=== PATIENT | female | born 1950 | race Two or more races ===

== ENCOUNTER 2018-08-10 10:04 | Outpatient (CLI) | payer OTHER | END 2018-08-10 10:12 | disposition home or self-care (01) | LOC: SONOGRAMA 10:04 | DX: D21.22 Benign neoplasm of connective and other soft tissue of left lower limb, including hip (principal) ==

== ENCOUNTER 2018-09-04 14:36 | Outpatient (CLI) | payer OTHER | END 2018-09-04 16:50 | disposition home or self-care (01) | LOC: MRI 14:36 | DX: D21.22 Benign neoplasm of connective and other soft tissue of left lower limb, including hip (principal) | CPT/HCPCS: 73720; A9579; 73718 ==

== ENCOUNTER 2018-09-23 04:36 | Emergency (ER) | payer OTHER ==
[~2018-09-23] VITALS: Ht 165.1 cm; Wt 65.3 kg
[2018-09-23] MEDS ORDERED: SYNTHROID50 MCG (04:59)
== END 2018-09-23 11:01 ==
LOC: ER 04:36
DX: N20.0 Calculus of kidney (principal)

== ENCOUNTER → 2018-11-20 | Outpatient (CLI) | payer OTHER ==
[~2018-11-20] MED LIST: SYNTHROID50 MCG
== END | disposition home or self-care (01) ==
LOC: NUCLEAR 11:22
DX: I82.422 Acute embolism and thrombosis of left iliac vein (principal)

== ENCOUNTER 2018-12-14 06:36 | Emergency (ER) | payer OTHER ==
[~2018-12-14] VITALS: Ht 167.6 cm; Wt 66.7 kg
[2018-12-14] MEDS ORDERED: VENTOLIN HFA18 GM (06:53)
[2018-12-14] MEDS ORDERED: AVAPRO300 MG (06:53)
== END 2018-12-14 17:03 | disposition home or self-care (01) ==
LOC: ER 06:36
DX: I82.492 Acute embolism and thrombosis of other specified deep vein of left lower extremity (principal); J45.998 Other asthma; I80.12 Phlebitis and thrombophlebitis of left femoral vein; J11.1 Influenza due to unidentified influenza virus with other respiratory manifestations

== ENCOUNTER 2019-01-04 12:14 | Outpatient (CLI) | payer OTHER ==
[~2019-01-04 12:14] MED LIST changes: +AVAPRO300 MG; +VENTOLIN HFA18 GM
== END 2019-01-04 12:27 | disposition home or self-care (01) ==
LOC: MRI 12:14
DX: R22.42 Localized swelling, mass and lump, left lower limb (principal)
CPT/HCPCS: 73718

== ENCOUNTER 2019-02-18 11:51 | Outpatient (CLI) | payer OTHER | END 2019-02-18 11:53 | disposition home or self-care (01) | LOC: RAD 11:51 | DX: M77.32 Calcaneal spur, left foot (principal); M77.42 Metatarsalgia, left foot ==

== ENCOUNTER 2019-07-15 05:30 | Day surgery (SDC) | payer OTHER ==
[~2019-07-15 05:30] MED LIST changes: +APRESOLINE 10MG10 MG PO
== END 2019-07-15 12:10 | disposition home or self-care (01) ==
LOC: CIR.AMB 05:30
DX: D17.24 Benign lipomatous neoplasm of skin and subcutaneous tissue of left leg (principal)

== ENCOUNTER 2019-07-29 09:52 | Emergency (ER) | payer OTHER ==
[~2019-07-29] VITALS: Ht 167.6 cm; Wt 65.8 kg
[2019-08-15] MEDS ORDERED: CATAPRES0.1 MG (18:44)
[2019-08-15] MEDS ORDERED: LEVOTHYROXINE25 MCG (18:44)
== END 2019-07-29 14:15 | disposition home or self-care (01) ==
LOC: ER 09:52
DX: J22 Unspecified acute lower respiratory infection (principal)

== ENCOUNTER → 2019-08-15 | Emergency (ER) | payer OTHER ==
[~2019-08-15] VITALS: Ht 167.6 cm; Wt 65.8 kg
[~2019-08-15] MED LIST changes: +CATAPRES0.1 MG; +LEVOTHYROXINE25 MCG
== END | disposition home or self-care (01) ==
LOC: ER 18:23
DX: S00.83XA Contusion of other part of head, initial encounter (principal); S19.89XA Other specified injuries of other specified part of neck, initial encounter; M54.2 Cervicalgia; Y04.2XXA Assault by strike against or bumped into by another person, initial encounter; Y93.89 Activity, other specified; Y92.488 Other paved roadways as the place of occurrence of the external cause; Y99.8 Other external cause status

== ENCOUNTER 2019-08-27 08:55 | Outpatient (CLI) | payer OTHER | END 2019-08-27 11:02 | disposition home or self-care (01) | LOC: MAMO-SONO 08:55 | DX: Z12.31 Encounter for screening mammogram for malignant neoplasm of breast (principal); Z87.898 Personal history of other specified conditions; N60.11 Diffuse cystic mastopathy of right breast; N60.12 Diffuse cystic mastopathy of left breast ==

== ENCOUNTER 2019-08-28 08:37 | Outpatient (CLI) | payer OTHER | END 2019-08-28 08:57 | disposition home or self-care (01) | LOC: SONOGRAMA 08:37 → MAMO-SONO 08:45 → SONOGRAMA 08:57 | DX: R93.2 Abnormal findings on diagnostic imaging of liver and biliary tract (principal) ==

== ENCOUNTER 2019-09-07 08:11 | Emergency (ER) | payer OTHER ==
[~2019-09-07] VITALS: Ht 167.6 cm; Wt 65.3 kg
== END 2019-09-07 10:09 | disposition home or self-care (01) ==
LOC: ER 08:11
DX: H72.92 Unspecified perforation of tympanic membrane, left ear (principal); J45.998 Other asthma

== ENCOUNTER 2019-11-18 07:55 | Outpatient (CLI) | payer OTHER | END 2019-11-18 07:58 | disposition home or self-care (01) | LOC: RAD 07:55 | DX: M54.5 Low back pain (principal); S80.219A Abrasion, unspecified knee, initial encounter; J40 Bronchitis, not specified as acute or chronic; I80.00 Phlebitis and thrombophlebitis of superficial vessels of unspecified lower extremity; I80.209 Phlebitis and thrombophlebitis of unspecified deep vessels of unspecified lower extremity; I10 Essential (primary) hypertension; E03.8 Other specified hypothyroidism; D21.22 Benign neoplasm of connective and other soft tissue of left lower limb, including hip; M77.11 Lateral epicondylitis, right elbow; M25.521 Pain in right elbow ==

== ENCOUNTER 2020-05-10 07:51 | Outpatient (CLI) | payer OTHER | END 2020-05-10 08:06 | disposition home or self-care (01) | LOC: SONOGRAMA 07:51 | PROVIDERS: ATTEND Internal Medicine | DX: N60.11 Diffuse cystic mastopathy of right breast (principal); D24.1 Benign neoplasm of right breast; D24.2 Benign neoplasm of left breast; M54.5 Low back pain; S80.219A Abrasion, unspecified knee, initial encounter; J40 Bronchitis, not specified as acute or chronic; I80.00 Phlebitis and thrombophlebitis of superficial vessels of unspecified lower extremity; I80.209 Phlebitis and thrombophlebitis of unspecified deep vessels of unspecified lower extremity; I10 Essential (primary) hypertension; E03.8 Other specified hypothyroidism; M77.11 Lateral epicondylitis, right elbow; M25.521 Pain in right elbow; Z12.31 Encounter for screening mammogram for malignant neoplasm of breast; Z13.820 Encounter for screening for osteoporosis ==

== ENCOUNTER 2021-01-02 08:20 | Outpatient (CLI) | payer OTHER | END 2021-01-02 08:28 | disposition home or self-care (01) | LOC: SONOGRAMA 08:20 → MAMO-SONO 08:45 | PROVIDERS: ATTEND Internal Medicine Gastroenterology | DX: K76.0 Fatty (change of) liver, not elsewhere classified (principal); R93.2 Abnormal findings on diagnostic imaging of liver and biliary tract; D41.4 Neoplasm of uncertain behavior of bladder ==

== ENCOUNTER 2021-01-16 08:36 | Outpatient (CLI) | payer OTHER | END 2021-01-16 08:39 | disposition home or self-care (01) | LOC: RAD 08:36 | PROVIDERS: ATTEND Specialist | DX: M25.561 Pain in right knee (principal) ==

== ENCOUNTER 2021-02-20 10:04 | Outpatient (CLI) | payer OTHER | END 2021-02-20 10:24 | disposition home or self-care (01) | LOC: MAMO-SONO 10:04 | PROVIDERS: ATTEND Obstetrics & Gynecology | DX: Z13.31 Encounter for screening for depression (principal); Z87.898 Personal history of other specified conditions; N60.11 Diffuse cystic mastopathy of right breast; N60.12 Diffuse cystic mastopathy of left breast; Z12.2 Encounter for screening for malignant neoplasm of respiratory organs ==

== ENCOUNTER 2021-05-21 07:51 | Emergency (ER) | payer OTHER ==
[~2021-05-21] VITALS: Ht 167.6 cm; Wt 63.0 kg
[2021-05-21] MEDS ORDERED: ATACAND32 MG (08:06)
== END 2021-05-21 10:18 | disposition home or self-care (01) ==
LOC: ER 07:51
DX: G44.89 Other headache syndrome (principal); F43.8 Other reactions to severe stress; F41.1 Generalized anxiety disorder; Z03.818 Encounter for observation for suspected exposure to other biological agents ruled out

== ENCOUNTER 2021-11-29 07:29 | Outpatient (CLI) | payer OTHER ==
[~2021-11-29 07:29] MED LIST changes: +ATACAND32 MG
== END 2021-11-29 07:32 | disposition home or self-care (01) ==
LOC: SONOGRAMA 07:29
PROVIDERS: ATTEND Internal Medicine Gastroenterology
DX: N20.0 Calculus of kidney (principal); K82.8 Other specified diseases of gallbladder

== ENCOUNTER 2022-04-05 08:39 | Outpatient (CLI) | payer OTHER | END 2022-04-05 08:49 | disposition home or self-care (01) | LOC: MRI 08:39 | PROVIDERS: ATTEND Physical Medicine & Rehabilitation | DX: M25.561 Pain in right knee (principal); M25.461 Effusion, right knee | CPT/HCPCS: 73721 ==

== ENCOUNTER 2022-04-18 08:59 | Outpatient (CLI) | payer OTHER | END 2022-04-18 09:01 | disposition home or self-care (01) | LOC: MAMO-SONO 08:59 | PROVIDERS: ATTEND Internal Medicine | DX: Z12.31 Encounter for screening mammogram for malignant neoplasm of breast (principal); N60.11 Diffuse cystic mastopathy of right breast; N60.12 Diffuse cystic mastopathy of left breast ==

== ENCOUNTER 2022-05-29 09:10 | Outpatient (CLI) | payer OTHER | END 2022-05-29 09:14 | disposition home or self-care (01) | LOC: MRI 09:10 | PROVIDERS: ATTEND Physical Medicine & Rehabilitation | DX: M54.2 Cervicalgia (principal); M54.12 Radiculopathy, cervical region | CPT/HCPCS: 72141 ==

== ENCOUNTER 2022-11-17 05:07 | Emergency (ER) | payer OTHER ==
[~2022-11-17] VITALS: Ht 167.6 cm; Wt 62.6 kg
== END 2022-11-17 09:52 | disposition home or self-care (01) ==
LOC: ER 05:07
DX: J45.901 Unspecified asthma with (acute) exacerbation (principal); J06.9 Acute upper respiratory infection, unspecified; I10 Essential (primary) hypertension

== ENCOUNTER 2023-02-25 13:14 | Outpatient (CLI) | payer OTHER | END 2023-02-25 14:37 | disposition home or self-care (01) | LOC: NUCLEAR 13:14 | PROVIDERS: ATTEND Internal Medicine | DX: Z13.820 Encounter for screening for osteoporosis (principal); Z12.31 Encounter for screening mammogram for malignant neoplasm of breast; M54.50 Low back pain, unspecified; J40 Bronchitis, not specified as acute or chronic; I10 Essential (primary) hypertension; E03.9 Hypothyroidism, unspecified; M25.521 Pain in right elbow; M48.8X2 Other specified spondylopathies, cervical region ==

== ENCOUNTER 2023-04-26 10:17 | Emergency (ER) | payer OTHER ==
[~2023-04-26] VITALS: Ht 170.2 cm; Wt 63.5 kg
[2023-04-26] MEDS ORDERED: TOPROL XL25 M1 PO (10:37)
[2023-04-26] MEDS ORDERED: HYDRALAZINE HCL25 MG PO (10:37)
== END 2023-04-26 12:42 | disposition home or self-care (01) ==
LOC: ER 10:17
DX: S83.8X1A Sprain of other specified parts of right knee, initial encounter (principal); X58.XXXA Exposure to other specified factors, initial encounter; Y93.89 Activity, other specified; Y92.89 Other specified places as the place of occurrence of the external cause; Y99.8 Other external cause status; I10 Essential (primary) hypertension

== ENCOUNTER 2023-05-07 08:26 | Outpatient (CLI) | payer OTHER ==
[~2023-05-07 08:26] MED LIST changes: +HYDRALAZINE HCL25 MG PO; +TOPROL XL25 M1 PO
== END 2023-05-07 08:40 | disposition home or self-care (01) ==
LOC: MAMO-SONO 08:26
PROVIDERS: ATTEND Internal Medicine
DX: Z12.31 Encounter for screening mammogram for malignant neoplasm of breast (principal); N60.11 Diffuse cystic mastopathy of right breast; N60.12 Diffuse cystic mastopathy of left breast

== ENCOUNTER 2023-05-09 08:24 | Outpatient (CLI) | payer OTHER | END 2023-05-09 08:26 | disposition home or self-care (01) | LOC: SONOGRAMA 08:24 | PROVIDERS: ATTEND Physical Medicine & Rehabilitation | DX: K80.20 Calculus of gallbladder without cholecystitis without obstruction (principal) ==

== ENCOUNTER 2023-05-30 08:47 | Outpatient (CLI) | payer OTHER | END 2023-05-30 08:55 | disposition home or self-care (01) | LOC: NUCLEAR 08:47 | PROVIDERS: ATTEND Physical Medicine & Rehabilitation | DX: I87.2 Venous insufficiency (chronic) (peripheral) (principal) ==

== ENCOUNTER 2023-06-10 08:32 | Outpatient (CLI) | payer OTHER | END 2023-06-10 08:36 | disposition home or self-care (01) | LOC: SONOGRAMA 08:32 | PROVIDERS: ATTEND Obstetrics & Gynecology | DX: E04.1 Nontoxic single thyroid nodule (principal) ==

== ENCOUNTER 2023-11-24 07:24 | Emergency (ER) | payer OTHER ==
[~2023-11-24] VITALS: Ht 167.6 cm; Wt 62.6 kg
[2023-11-24] MEDS ORDERED: ATACAND32 MG PO (07:55)
[2023-11-24] MEDS ORDERED: HYDRALAZINE HCL50 MG PO (07:55)
[2023-11-24 09:33] LABS: HEMATOCRIT 43.5 % (36.0-45.00); HEMOGLOBIN 14.7 g/dL (12.0-15.00); MEAN CELL VOLUME 83.3 fL (80.00-100.00); MEAN CORPUSCULAR HEMOGLOBIN 28.3 pg (27.00-32.0); MEAN CORPUSCULAR HGB CONC 33.9 g/dl (32.0-36.0); PLATELET COUNT 205 K/uL (150-450); RED BLOOD COUNT 5.22 M/uL (4.00-6.00); RED CELL DISTRIBUTION WIDTH 13.3 % (11.5-14.5)
[2023-11-24 10:06] LABS: CALCIUM 10.4 mg/dL (8.5-10.1); CREATININE SERUM 0.55 mg/dL (0.55-1.02); GFR 108.96; POTASSIUM 3.86 mEq/L (3.5-5.1)
== END 2023-11-24 11:17 | disposition home or self-care (01) ==
LOC: ER 07:24
PROVIDERS: General Practice
DX: J06.9 Acute upper respiratory infection, unspecified (principal); K59.00 Constipation, unspecified
CPT/HCPCS: 96365; 99283; J3490

== ENCOUNTER 2023-12-01 08:55 | Outpatient (CLI) | payer OTHER ==
[~2023-12-01 08:55] MED LIST changes: +ATACAND32 MG PO; +HYDRALAZINE HCL50 MG PO
== END 2023-12-01 08:58 | disposition home or self-care (01) ==
LOC: RAD 08:55
PROVIDERS: ATTEND Physical Medicine & Rehabilitation
DX: M17.11 Unilateral primary osteoarthritis, right knee (principal); M17.12 Unilateral primary osteoarthritis, left knee

== ENCOUNTER 2023-12-10 11:33 | Outpatient (CLI) | payer OTHER | END 2023-12-10 11:38 | disposition home or self-care (01) | LOC: RAD 11:33 | PROVIDERS: ATTEND Physical Medicine & Rehabilitation | DX: R22.41 Localized swelling, mass and lump, right lower limb (principal) ==

== ENCOUNTER 2023-12-18 14:00 | Outpatient (CLI) | payer OTHER | END 2023-12-18 14:01 | disposition home or self-care (01) | LOC: NUCLEAR 14:00 | PROVIDERS: ATTEND Physical Medicine & Rehabilitation | DX: I82.401 Acute embolism and thrombosis of unspecified deep veins of right lower extremity (principal); I73.9 Peripheral vascular disease, unspecified; I87.2 Venous insufficiency (chronic) (peripheral) ==

== ENCOUNTER 2023-12-19 08:31 | Outpatient (CLI) | payer OTHER | END 2023-12-19 08:35 | disposition home or self-care (01) | LOC: SONOGRAMA 08:31 | PROVIDERS: ATTEND Physical Medicine & Rehabilitation | DX: R22.41 Localized swelling, mass and lump, right lower limb (principal) ==

== ENCOUNTER → 2023-12-25 08:41 | Outpatient (CLI) | payer OTHER | END | disposition home or self-care (01) | LOC: NUCLEAR 08:41 | PROVIDERS: ATTEND Physical Medicine & Rehabilitation | DX: I77.9 Disorder of arteries and arterioles, unspecified (principal) ==

== ENCOUNTER 2024-01-05 10:34 | Outpatient (CLI) | payer OTHER | END 2024-01-05 10:40 | disposition home or self-care (01) | LOC: MRI 10:34 | PROVIDERS: ATTEND Internal Medicine Cardiovascular Disease | DX: M79.9 Soft tissue disorder, unspecified (principal) | CPT/HCPCS: 73721 ==

== ENCOUNTER 2024-06-14 08:35 | Outpatient (CLI) | payer OTHER | END 2024-06-14 08:41 | disposition home or self-care (01) | LOC: SONOGRAMA 08:35 | PROVIDERS: ATTEND Internal Medicine Endocrinology, Diabetes & Metabolism | DX: E04.8 Other specified nontoxic goiter (principal) ==

== ENCOUNTER 2024-06-17 08:36 | Outpatient (CLI) | payer OTHER | END 2024-06-17 08:45 | disposition home or self-care (01) | LOC: MAMO-SONO 08:36 | PROVIDERS: ATTEND Obstetrics & Gynecology | DX: N60.11 Diffuse cystic mastopathy of right breast (principal); N60.12 Diffuse cystic mastopathy of left breast; Z12.31 Encounter for screening mammogram for malignant neoplasm of breast ==

== ENCOUNTER 2024-09-22 09:29 | Outpatient (CLI) | payer OTHER | END 2024-09-22 09:40 | disposition home or self-care (01) | LOC: MRI 09:29 | PROVIDERS: ATTEND Psychiatry & Neurology Clinical Neurophysiology | DX: D33.3 Benign neoplasm of cranial nerves (principal) | CPT/HCPCS: 70552; Q9965 ==

== ENCOUNTER 2024-12-08 10:52 | Outpatient (CLI) | payer OTHER | END 2024-12-08 10:54 | disposition home or self-care (01) | LOC: RAD 10:52 | PROVIDERS: ATTEND Physical Medicine & Rehabilitation | DX: M54.50 Low back pain, unspecified (principal); M54.16 Radiculopathy, lumbar region ==

== ENCOUNTER 2025-01-20 13:52 | Outpatient (CLI) | payer OTHER | END 2025-01-20 13:59 | disposition home or self-care (01) | LOC: RAD 13:52 | PROVIDERS: ATTEND Internal Medicine Pulmonary Disease | DX: J45.30 Mild persistent asthma, uncomplicated (principal); J32.2 Chronic ethmoidal sinusitis ==

== ENCOUNTER 2025-02-03 13:00 | Outpatient (CLI) | payer OTHER | END 2025-02-03 13:09 | disposition home or self-care (01) | LOC: MRI 13:00 | PROVIDERS: ATTEND Physical Medicine & Rehabilitation | DX: M54.50 Low back pain, unspecified (principal) | CPT/HCPCS: 72148 ==

== ENCOUNTER → 2025-03-17 | Outpatient (CLI) | payer OTHER | END | disposition home or self-care (01) | LOC: RAD 12:43 | PROVIDERS: ATTEND Physical Medicine & Rehabilitation | DX: M25.561 Pain in right knee (principal); M17.11 Unilateral primary osteoarthritis, right knee ==

== ENCOUNTER 2025-03-23 08:38 | Emergency (ER) | payer OTHER ==
[~2025-03-23] VITALS: Ht 167.6 cm; Wt 62.6 kg
[2025-03-23] MEDS ORDERED: SYNTHROID50 MCG PO (08:57)
[2025-03-23] MEDS ORDERED: MONTELUKAST SOD10 MG PO (08:57)
[2025-03-23] MEDS ORDERED: ROSUVASTATIN CA20 MG PO (08:57)
[2025-03-23] MEDS ORDERED: CEFTRIAXONE SODIUM 1,000 MG VIAL IV STA (09:53)
[2025-03-23] MEDS ORDERED: KETOROLAC TROMETHAMINE 60 MG VIAL IM ONE (09:54)
[2025-03-23] MEDS ORDERED: ORPHENADRINE CITRATE 30 MG/ML AMPUL ONE (09:54)
[2025-03-23] MEDS ORDERED: ORPHENADRINE CITRATE 30 MG/ML AMPUL IM STA (09:54)
[2025-03-23] MEDS ORDERED: KETOROLAC TROMETHAMINE 60 MG VIAL IM STA (09:54)
[2025-03-23] MEDS ORDERED: CEFTRIAXONE SODIUM 1,000 MG VIAL ONE (09:55)
[2025-03-23] MEDS ORDERED: LIDOCAINE HCL 1% 10ML VIAL ONE (09:56)
== END 2025-03-23 10:52 | disposition home or self-care (01) ==
LOC: ER 08:42
DX: M51.26 Other intervertebral disc displacement, lumbar region (principal); L02.91 Cutaneous abscess, unspecified; I10 Essential (primary) hypertension

== ENCOUNTER 2025-05-19 10:50 | Outpatient (CLI) | payer OTHER ==
[~2025-05-19 10:50] MED LIST changes: +MONTELUKAST SOD10 MG PO; +ROSUVASTATIN CA20 MG PO; +SYNTHROID50 MCG PO
== END 2025-05-19 10:54 | disposition home or self-care (01) ==
LOC: SONOGRAMA 10:50
PROVIDERS: ATTEND Internal Medicine Endocrinology, Diabetes & Metabolism
DX: E04.8 Other specified nontoxic goiter (principal)

== ENCOUNTER 2025-05-20 08:22 | Outpatient (CLI) | payer OTHER | END 2025-05-20 08:27 | disposition home or self-care (01) | LOC: SONOGRAMA 08:22 | PROVIDERS: ATTEND Internal Medicine Cardiovascular Disease | DX: K82.9 Disease of gallbladder, unspecified (principal) ==

== ENCOUNTER 2025-07-14 10:51 | Outpatient (CLI) | payer OTHER | END 2025-07-14 10:54 | disposition home or self-care (01) | LOC: MAMO-SONO 10:51 | PROVIDERS: ATTEND Obstetrics & Gynecology | DX: N60.11 Diffuse cystic mastopathy of right breast (principal); N60.12 Diffuse cystic mastopathy of left breast; Z12.31 Encounter for screening mammogram for malignant neoplasm of breast ==

== ENCOUNTER 2025-08-24 11:05 | Outpatient (CLI) | payer OTHER | END 2025-08-24 11:06 | disposition home or self-care (01) | LOC: NUCLEAR 11:05 | PROVIDERS: ATTEND Obstetrics & Gynecology | DX: M81.0 Age-related osteoporosis without current pathological fracture (principal) ==